=== PATIENT | male | born 1995 | race Caucasian/White ===

== ENCOUNTER 2021-06-10 21:30 | Emergency (ER) | payer BC ==
[~2021-06-10] VITALS: Ht 190.5 cm; Wt 109.8 kg
--- NOTE | 2021-06-10 22:10 | NUR ---
Patient presents with C/O lower abdominal pain and pain in the tip of penis. Patient states, "My lower abdomen started hurting yesterday, just a little bit. Today it slowly got worse and I noticed that the tip of my penis was red and tender. I feel like I need to pee, but when I try very little comes out. I think I might be dehydrated too because my urine is dark yellow." Patient alert, no signs of distress noted, denies fever, N/V/D. Rates pain 4/10 while sitting and 8/10 when abdominal muscles are tightened. No other complaints at this time.
[2021-06-10 22:26] VITALS: BP 144/99
[2021-06-10 22:47] LABS: BILIRUBIN,URINE MODERATE (NEGATIVE); UA COLOR YELLOW
--- NOTE | 2021-06-10 23:27 | ER.PDOC ---
General Chief Complaint: Abdomen Pain Stated Complaint: LOWER ABD & GROIN PAIN Time seen by MD: 23:05 Source: patient Exam Limitations: no limitations History of Present Illness Initial Comments 26 yo male states he has swelling of his penile shaft after an episode of masturbation last night.He states this morning he had a mild pain of his left groin and became concerned that something serious was wrong. He states he feels fine now except for the swelling of his penile shaft. He denies any pain or bruising of the penile shaft. He denies any pain or swelling of his testicles. He denies any abdominal or flank pain. He denies nausea, vomiting, diarrhea, black or bloody stool. He denies any fever. He denies any penile discharge or lesions Timing/Duration: yesterday Severity/Quality: mild, other (swelling) Location: groin (left) Associated Symptoms: Dysuria (none), Frequency (none), Hematuria (none), Penile discharge (none), Testicle pain (R) (none), Testicle pain (L) (none) Prior symptoms/Treatment: Similar symptoms previous (none) Past Medical History Medical History: no pertinent history Surgical History: no surgical history Family History Significant Family History: no pertinent family hx Social History Alcohol Use: rarely Drug Use: none Review of Systems Constitutional: denies fever Genitourinary: denies burning, denies discharge, denies dysuria, denies frequency, denies flank pain, denies hematuria Musculoskeletal: denies back pain Skin: denies lesions, denies rash Hematologic/Lymphatic: denies easy bruising All Other Systems: Reviewed and Negative Physical Exam General Appearance: No Apparent Distress, WD/WN EENT: eyes nml inspection, nml ENT inspection, pharynx nml Neck: nml inspection, non-tender Cardiovascular/Respiratory: Regular Rate, Rhythm, No M/R/G, Normal Peripheral Pulses, No JVD, Normal Breath Sounds, No Respiratory Distress Abdomen: Normal Bowel Sounds, Non Tender, Soft, No Organomegaly, No Pulsatile Mass Male Genitals: Normal Genitalia, No Hernia, Epididymal Tenderness (none), Lesions (none), Uncircumcised Back: nml inspection Extremities: Normal Range of Motion, Non-Tender, Normal Inspection, No Pedal Edema, Normal Capillary Refill 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, No Motor/Sensory Deficits, Alert, Normal Mood/Affect, Oriented x 3 Skin: Normal Color, Warm/Dry Results/Orders Results/Orders Orders - VALE STEELE MD Urinalysis (06/10/21 22:34) Urine Culture (06/10/21 21:30) Vital Signs Date Time Temp Pulse Resp B/P (MAP) Pulse Ox O2 Delivery O2 Flow Rate FiO2 06/10/21 22:26 98.4 110 18 144/99 (114) 95 Room Air 06/10/21 22:26 98.4 110 18 95 06/10/21 22:26 98.4 110 18 Laboratory Tests Test 06/10/21 21:30 Urine Collection Type RANDOM Urine Color YELLOW Urine Appearance CLEAR Urine Bilirubin MODERATE (NEGATIVE) H Urine Ketones NEGATIVE (NEGATIVE) Urine Specific [place] >=1.030 (1.005-1.030) Urine pH 5.5 (4.5-8.0) Urine Protein 100 mg/dL (NEGATIVE) H Urine Urobilinogen 1.0 E.U./dL (0.2) Urine Nitrate NEGATIVE (NEGATIVE) Urine Leukocyte Esterase NEGATIVE (NEGATIVE) Urine Glucose (Auto)(UA) NEGATIVE (NEGATIVE) Urine Blood NEGATIVE (NEGATIVE) Urine RBC NONE SEEN RBC/HPF (NONE Urine WBC 0-2 WBC/HPF (0-2) Urine Bacteria FEW (NONE SEEN) H Progress Progress UA negative for blood or infection. He does appear mildly dehydrated on UA.Likely mild edema of shaft of penis from forceful masturbation will resolve spontaneously. No evidence of penile fracture, testicular torsion, orchitis, balanitis or other serious cause of swelling. Discharge home, limit manipulation of penis. Follow up PCP 1 week if not improved. ER DEPART Departure Time of Disposition: 23:25 Disposition: 01 HOME / SELF CARE / HOMELESS Impression: Primary Impression: Edema, penis Condition: Stable Referrals: PCP,UNKNOWN (PCP) PRIMARY CARE PROVIDER Additional Instructions: Return immediately if severe pain, bloody urine, vomiting, fever. Minimize manipulation of penis. Follow up with PCP in 1 week if not improved. Duration or Time Spent with Pa: 20 min Return to Work/School Can a patient return to work?: Yes VALE STEELE MD Jun 10, 2021 23:27
== END 2021-06-10 23:35 | disposition home or self-care (01) ==
LOC: ER 21:30
DX: N48.89 Other specified disorders of penis (principal)
CPT/HCPCS: 81001; 87086; 99283